=== PATIENT | male | born 1970 | race Caucasian/White ===

== ENCOUNTER 2016-06-27 09:22 | Emergency (ER) | payer BC ==
[2016-06-27] MEDS ORDERED: TOPROL XL 50MG50 MG PO (14:42)
[2016-06-27] MEDS ORDERED: NITROSTAT0.4 M1 SL (14:42)
[2016-06-27 14:55] VITALS: BP 168/99
== END 2016-06-27 14:55 | disposition home or self-care (01) ==
LOC: ED 09:22
DX: R07.9 Chest pain, unspecified (principal); I20.8 Other forms of angina pectoris; I10 Essential (primary) hypertension
CPT/HCPCS: J1885; J7030

== ENCOUNTER → 2016-07-01 | Outpatient (CLI) | payer BC ==
[2016-06-27 14:55] VITALS: BP 168/99
[~2016-07-01] MED LIST: NITROSTAT0.4 M1 SL; TOPROL XL 50MG50 MG PO
== END ==
LOC: CARDREHAB 07:50
DX: R07.89 Other chest pain (principal); I20.9 Angina pectoris, unspecified; I10 Essential (primary) hypertension
CPT/HCPCS: A9500

== ENCOUNTER → 2019-01-11 | Outpatient (CLI) | payer BC ==
[2019-01-11 16:07] LABS: EOS # 0.3 (0.04-0.40); HEMATOCRIT 43.6 % (42.0-52.0); HEMOGLOBIN 15.5 g/dL (13.5-18.0); LYMPH# 1.5 (1.50-4.00); MEAN CELL VOLUME 85 fl (78-100); MEAN CORPUSCULAR HEMOGLOBIN 30 pg (27-31); MEAN CORPUSCULAR HGB CONC 36 g/dL (33-37); MEAN PLATELET VOLUME 9.7 fl (7.4-10.4); MONO # 0.7 (0.20-0.80); NEU # 5.4 (1.40-6.50); PLATELET COUNT 244 K/mm3 (130-400); RED BLOOD COUNT 5.14 M/mm3 (4.20-5.60); RED CELL DISTRIBUTION WIDTH 12.6 % (11.5-14.5); WHITE BLOOD COUNT 7.9 K/mm3 (4.8-10.8)
[2019-01-11 16:19] LABS: ALBUMIN 4.5 g/dL (3.5-5.0); POTASSIUM 3.7 mmol/L (3.5-5.1)
[2019-01-11 16:20] LABS: CALCIUM 9.9 mg/dL (8.3-10.5)
== END ==
LOC: LAB 15:48
PROVIDERS: Internal Medicine
DX: R19.7 Diarrhea, unspecified (principal)

== ENCOUNTER → 2019-01-14 | Outpatient (CLI) | payer BC | LOC: LAB 08:46 | DX: Z01.89 Encounter for other specified special examinations (principal) ==

== ENCOUNTER → 2019-10-10 | Outpatient (CLI) | payer BC ==
[2019-10-10 17:23] LABS: EOS # 0.1 (0.04-0.40); EOS % 1.2 % (0.0-4.0); HEMOGLOBIN 14.5 g/dL (13.5-18.0); LYMPH# 2.1 (1.50-4.00); MEAN CELL VOLUME 89 fl (78-100); MEAN CORPUSCULAR HEMOGLOBIN 30 pg (27-31); MEAN CORPUSCULAR HGB CONC 34 g/dL (33-37); MEAN PLATELET VOLUME 10.2 fl (7.4-10.4); MONO # 0.6 (0.20-0.80); NEU # 5.4 (1.40-6.50); PLATELET COUNT 259 K/mm3 (130-400); RED BLOOD COUNT 4.83 M/mm3 (4.20-5.60); RED CELL DISTRIBUTION WIDTH 13.2 % (11.5-14.5); WHITE BLOOD COUNT 8.3 K/mm3 (4.8-10.8)
[2019-10-10 17:30] LABS: ALBUMIN 4.6 g/dL (3.5-5.0); POTASSIUM 3.9 mmol/L (3.5-5.1)
[2019-10-10 17:31] LABS: CALCIUM 9.8 mg/dL (8.3-10.5)
[2019-10-10 17:33] LABS: TOTAL PROTEIN 7.7 g/dL (6.4-8.3)
[2019-10-10 17:34] LABS: TOTAL BILIRUBIN 0.6 mg/dL (0.2-1.2)
[2019-10-10 18:19] LABS: ERYTHROCYTE SEDIMENTATION RATE 14 mm/hr (0-15)
== END ==
LOC: LAB 17:08
PROVIDERS: Internal Medicine
DX: Z00.00 Encounter for general adult medical examination without abnormal findings (principal); Z12.5 Encounter for screening for malignant neoplasm of prostate

== ENCOUNTER → 2020-02-04 | Outpatient (CLI) | payer BC ==
[2020-02-04 09:26] LABS: POTASSIUM 4.1 mmol/L (3.5-5.1)
[2020-02-04 09:27] LABS: CALCIUM 8.9 mg/dL (8.3-10.5)
[2020-02-04 09:34] LABS: MAGNESIUM 1.81 mg/dL (1.60-2.60)
== END ==
LOC: LAB 08:25
PROVIDERS: Internal Medicine
DX: I10 Essential (primary) hypertension (principal)

== ENCOUNTER → 2020-09-11 | Outpatient (CLI) | payer BC ==
[2020-09-11 11:35] LABS: BASO # 0.03 (0.02-0.10); EOS # 0.11 (0.04-0.40); EOS % 1.7 % (0.0-4.0); HEMATOCRIT 43.4 % (42.0-52.0); HEMOGLOBIN 14.9 g/dL (13.5-18.0); LYMPH# 1.98 (1.50-4.00); MEAN CELL VOLUME 88 fl (78-100); MEAN CORPUSCULAR HEMOGLOBIN 30 pg (27-31); MEAN CORPUSCULAR HGB CONC 34 g/dL (33-37); MEAN PLATELET VOLUME 9.5 fl (7.4-10.4); MONO # 0.52 (0.20-0.80); NEU # 3.85 (1.40-6.50); PLATELET COUNT 232 K/mm3 (130-400); RED BLOOD COUNT 4.96 M/mm3 (4.20-5.60); RED CELL DISTRIBUTION WIDTH 12.1 % (11.5-14.5); WHITE BLOOD COUNT 6.5 K/mm3 (4.8-10.8)
[2020-09-11 11:37] LABS: ALBUMIN 4.2 g/dL (3.5-5.0); SODIUM 139 mmol/L (136-145)
[2020-09-11 11:39] LABS: CALCIUM 9.1 mg/dL (8.3-10.5)
[2020-09-11 11:40] LABS: GLUCOSE 97 mg/dL (75-110); TOTAL PROTEIN 7.1 g/dL (6.4-8.3)
[2020-09-11 11:41] LABS: CARBON DIOXIDE 25 mmol/L (22-29)
[2020-09-11 11:42] LABS: TOTAL BILIRUBIN 0.6 mg/dL (0.2-1.2)
[2020-09-11 11:45] LABS: AST-SGOT 19 U/L (5-34)
[2020-09-11 11:46] LABS: ALT/SGPT 28 U/L (0-55)
[2020-09-11 11:59] LABS: TROPONIN-I < 0.03 ng/mL (<0.030)
== END ==
LOC: AMSURD 11:10
PROVIDERS: Nurse Practitioner
DX: R07.89 Other chest pain (principal)

== ENCOUNTER → 2020-10-02 | Outpatient (CLI) | payer BC ==
[2020-10-02 12:27] LABS: MAGNESIUM 1.84 mg/dL (1.60-2.60)
== END ==
LOC: LAB 11:49
PROVIDERS: Internal Medicine
DX: Z00.00 Encounter for general adult medical examination without abnormal findings (principal); Z12.5 Encounter for screening for malignant neoplasm of prostate

== ENCOUNTER → 2021-06-29 | Outpatient (CLI) | payer BC ==
[2021-06-29 13:39] LABS: BASO # 0.05 K/mm3 (0.02-0.10); EOS # 0.32 K/mm3 (0.04-0.40); EOS % 3.1 % (0.0-4.0); HEMATOCRIT 44.4 % (42.0-52.0); LYMPH# 2.03 K/mm3 (1.50-4.00); MEAN CELL VOLUME 89 fl (78-100); MEAN CORPUSCULAR HEMOGLOBIN 30 pg (27-31); MEAN CORPUSCULAR HGB CONC 34 g/dL (33-37); MEAN PLATELET VOLUME 9.6 fl (7.4-10.4); MONO # 0.71 K/mm3 (0.20-0.80); PLATELET COUNT 253 K/mm3 (130-400); RED BLOOD COUNT 4.97 M/mm3 (4.20-5.60); RED CELL DISTRIBUTION WIDTH 12.6 % (11.5-14.5); WHITE BLOOD COUNT 10.5 K/mm3 (4.8-10.8)
[2021-06-29 13:48] LABS: ALBUMIN 4.2 g/dL (3.5-5.0); POTASSIUM 3.9 mmol/L (3.5-5.1)
[2021-06-29 13:50] LABS: CALCIUM 9.8 mg/dL (8.3-10.5)
[2021-06-29 13:51] LABS: TOTAL PROTEIN 7.4 g/dL (6.4-8.3)
[2021-06-29 13:53] LABS: TOTAL BILIRUBIN 0.4 mg/dL (0.2-1.2)
[2021-06-29 14:56] LABS: ERYTHROCYTE SEDIMENTATION RATE 11 mm/hr (0-20)
== END ==
LOC: LAB 13:27
PROVIDERS: Internal Medicine
DX: J34.1 Cyst and mucocele of nose and nasal sinus (principal)

== ENCOUNTER → 2021-09-20 | Outpatient (CLI) | payer BC | LOC: LAB 16:36 | DX: Z00.00 Encounter for general adult medical examination without abnormal findings (principal); Z12.5 Encounter for screening for malignant neoplasm of prostate; Z12.11 Encounter for screening for malignant neoplasm of colon; E55.9 Vitamin D deficiency, unspecified; E66.01 Morbid (severe) obesity due to excess calories; M47.816 Spondylosis without myelopathy or radiculopathy, lumbar region ==

== ENCOUNTER → 2023-02-22 | Outpatient (CLI) | payer BC ==
[~2023-02-22] MED LIST changes: +AMLODIPINE BESYL5 MG PO; +HYDROCHLOROTH12.5 M2 PO; +XARELTO10 MG PO; +ZESTRIL5 M1 PO
[2023-02-22 09:59] LABS: BASO # 0.02 K/mm3 (0.02-0.10); EOS # 0.17 K/mm3 (0.04-0.40); EOS % 2.3 % (0.0-4.0); HEMATOCRIT 47.7 % (42.0-52.0); HEMOGLOBIN 15.8 g/dL (13.5-18.0); LYMPH# 2.26 K/mm3 (1.50-4.00); MEAN CELL VOLUME 91 fl (78-100); MEAN CORPUSCULAR HEMOGLOBIN 30 pg (27-31); MEAN CORPUSCULAR HGB CONC 33 g/dL (33-37); MEAN PLATELET VOLUME 9.7 fl (7.4-10.4); MONO # 0.61 K/mm3 (0.20-0.80); NEU # 4.37 K/mm3 (1.40-6.50); PLATELET COUNT 225 K/mm3 (130-400); RED BLOOD COUNT 5.24 M/mm3 (4.20-5.60); RED CELL DISTRIBUTION WIDTH 12.7 % (11.5-14.5); WHITE BLOOD COUNT 7.6 K/mm3 (4.8-10.8)
[2023-02-22 10:12] LABS: ALBUMIN 4.1 g/dL (3.5-5.0)
[2023-02-22 10:13] LABS: CALCIUM 10.5 mg/dL (8.3-10.5)
[2023-02-22 10:16] LABS: TOTAL BILIRUBIN 0.4 mg/dL (0.2-1.2)
[2023-02-22 10:21] LABS: MAGNESIUM 2.06 mg/dL (1.60-2.60)
== END ==
LOC: LAB 09:34
PROVIDERS: Internal Medicine
DX: Z00.00 Encounter for general adult medical examination without abnormal findings (principal); Z12.5 Encounter for screening for malignant neoplasm of prostate; Z12.11 Encounter for screening for malignant neoplasm of colon; K90.9 Intestinal malabsorption, unspecified; E55.9 Vitamin D deficiency, unspecified; I48.91 Unspecified atrial fibrillation; I10 Essential (primary) hypertension; E78.2 Mixed hyperlipidemia

== ENCOUNTER → 2023-04-24 | Outpatient (CLI) | payer BC ==
[2023-04-24 12:21] LABS: CALCIUM 9.7 mg/dL (8.3-10.5)
== END ==
LOC: LAB 11:27
DX: I48.0 Paroxysmal atrial fibrillation (principal)

== ENCOUNTER → 2023-05-30 | Outpatient (REF) | payer BC | LOC: LAB 09:08 | DX: J02.9 Acute pharyngitis, unspecified (principal) ==

== ENCOUNTER 2023-11-29 10:25 | Outpatient (RCR) | payer BC | END 2023-12-11 | disposition home or self-care (01) | LOC: PT | DX: M51.16 Intervertebral disc disorders with radiculopathy, lumbar region (principal); M48.061 Spinal stenosis, lumbar region without neurogenic claudication; M47.26 Other spondylosis with radiculopathy, lumbar region ==

== ENCOUNTER 2023-12-14 07:59 | Outpatient (RCR) | payer BC | END 2024-01-11 | disposition home or self-care (01) | LOC: PT | DX: M51.16 Intervertebral disc disorders with radiculopathy, lumbar region (principal); M48.061 Spinal stenosis, lumbar region without neurogenic claudication ==

== ENCOUNTER → 2024-01-09 | Day surgery (SDC) | payer BC ==
[~2024-01-09] MED LIST changes: +Iohexol 300 - 10 ML VIAL IV ONE; +Lidocaine PF 2% (20 MG/ML) 2 ML VIAL IJ ONE; +methylPREDNISolone acetate 80 MG/ML VIAL IJ ONE
== END ==
LOC: MSO 13:35
DX: M47.26 Other spondylosis with radiculopathy, lumbar region (principal); E66.01 Morbid (severe) obesity due to excess calories
CPT/HCPCS: J1010; Q9967

== ENCOUNTER → 2024-05-25 | Outpatient (CLI) | payer BC ==
[~2024-05-25] MED LIST changes: -Iohexol 300 - 10 ML VIAL IV ONE; -Lidocaine PF 2% (20 MG/ML) 2 ML VIAL IJ ONE; -methylPREDNISolone acetate 80 MG/ML VIAL IJ ONE
[2024-05-25 21:05] LABS: CORTISOL, AM (0800) <1 ug/dL (4-19)
[2024-05-27 08:35] LABS: TESTOSTERONE 688 ng/dL (221-716)
== END ==
LOC: LAB 07:48
PROVIDERS: Internal Medicine
DX: E24.9 Cushing's syndrome, unspecified (principal); F52.21 Male erectile disorder

== ENCOUNTER → 2024-05-30 | Outpatient (CLI) | payer BC ==
[2024-06-04 19:18] LABS: CORTISOL,URINE SEE PCI FOR RESULTS
== END ==
LOC: LAB 09:10
PROVIDERS: Internal Medicine
DX: E24.9 Cushing's syndrome, unspecified (principal); F52.21 Male erectile disorder